=== PATIENT | female | born 1995 | race Caucasian/White ===

== ENCOUNTER 2018-10-12 06:02 | Emergency (ER) | payer MEDICAID ==
[2018-10-12] MEDS ORDERED: Sodium Chloride 0.9% 10 ML Syringe FLUSH PRN (06:28)
[2018-10-12] MEDS ORDERED: HYDROmorphone 0.5 MG/0.5 ML Syringe IVPUSH ONE ×2 (06:28→08:52)
[2018-10-12] MEDS ORDERED: Ketorolac 30 MG/ML SDV IVPUSH SCH (06:30)
[2018-10-12] MEDS ORDERED: Sodium Chloride 0.9% 1,000 ML IV SCH (06:30)
[2018-10-12] MEDS ORDERED: Ketorolac 30 MG/ML SDV ONE (06:33)
--- NOTE | 2018-10-12 06:58 | EDM.PDOC ---
ED HPI GENERAL MEDICAL PROBLEM - General Chief Complaint: Flank Pain Stated Complaint: BACK AND SIDE PAIN Time Seen by Provider: 10/12/18 06:21 Source of Information: Reports: Patient, RN Notes Reviewed - History of Present Illness INITIAL COMMENTS - FREE TEXT/NARRATIVE: 23 old female comes in with severe right-sided flank and back discomfort. Started about one hour ago. Said some mild achiness right back for the last several days but nothing severe. Now the pain is severe, sharp, shooting and will not go away. She's had no recent voiding symptomatology. No fever chills nausea or vomiting. She does have history of 1 prior kidney stone about 4 years ago. The flank and abdominal discomfort does not radiate to the left side but does radiate down toward the right groin. Right Flank Pain Score (Numeric/FACES): 10 - Related Data Allergies Allergy/AdvReac Type Severity Reaction Status Date / Time acetaminophen [From Vicodin] Allergy Hives Verified 10/12/18 06:13 amoxicillin Allergy Hives Verified 10/12/18 06:16 hydrocodone [From Vicodin] Allergy Hives Verified 10/12/18 06:13 oxycodone [From Percocet] Allergy Hives Verified 10/12/18 06:14 Penicillins Allergy Hives Verified 10/12/18 06:13 Home Meds: Home Meds traMADol [Ultram] 50 mg PO Q6H PRN #20 tab 10/12/18 [Rx] Past Medical History Gastrointestinal History: Reports: Cholelithiasis Genitourinary History: Reports: Renal Calculus 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: Musculoskeletal History: Reports: Fracture, Other (See Below) Other Musculoskeletal History: Fx elbow - Past Surgical History HEENT Surgical History: Reports: Tonsillectomy Social & Family History - Tobacco Use Smoking Status *Q: Former Smoker Years of Tobacco use: 4 Used Tobacco, but Quit: Yes Month/Year Tobacco Last Used: 2018 - Caffeine Use Caffeine Use: Reports: Coffee - Recreational Drug Use Recreational Drug Use: No ED ROS GENERAL - Review of Systems Review Of Systems: See Below Constitutional: Denies: Fever, Chills HEENT: Reports: No Symptoms Respiratory: Denies: Shortness of Breath Cardiovascular: Denies: Chest Pain GI/Abdominal: Reports: Abdominal Pain. Denies: Diarrhea, Nausea (Right flank), Vomiting : Reports: No Symptoms Musculoskeletal: Reports: Back Pain (Right-sided) Skin: Reports: No Symptoms ED EXAM, RENAL/ - Physical Exam Exam: See Below General Appearance: Alert, Moderate Distress Eye Exam: Bilateral Eye: PERRL Throat/Mouth: Normal Inspection Head: Atraumatic Neck: Supple Respiratory/Chest: No Respiratory Distress, Lungs Clear, Normal Breath Sounds Cardiovascular: Regular Rate, Rhythm GI/Abdominal: Soft, Non-Tender Back Exam: CVA Tenderness (R) (Mild) Neurological: Alert, Oriented, No Motor/Sensory Deficits Skin Exam: Warm, Dry, Normal Color Course - Vital Signs Last Recorded V/S: Last Vital Signs Temp 97.7 F 10/12/18 06:09 Pulse 97 10/12/18 06:09 Resp 18 10/12/18 06:09 BP 134/101 H 10/12/18 06:09 Pulse Ox 99 10/12/18 06:09 - Orders/Labs/Meds Orders: Active Orders 24 hr Category Date Time Status Peripheral IV Care [RC] . DIRECTED Care 10/12/18 06:30 Active Peripheral IV Insertion Adult [OM.PC] Stat Oth 10/12/18 06:27 Ordered Labs: Laboratory Tests 10/12/18 Range/Units 08:20 Urine Color Yellow (Yellow) Urine Appearance Slt cloudy H (Clear) Urine pH 5.5 (5.0-8.0) Ur Specific [place] > or = 1.030 (1.005-1.030) Urine Protein 2+ H (Negative) Urine Glucose (UA) Negative (Negative) Urine Ketones Negative (Negative) Urine Occult Blood 3+ H (Negative) Urine Nitrite Negative (Negative) Urine Bilirubin Negative (Negative) Urine Urobilinogen 0.2 (0.2-1.0) Ur Leukocyte Esterase Negative (Negative) Urine RBC 40-50 H (0-5) /hpf Urine WBC 0-5 (0-5) /hpf Ur Epithelial Cells 0-5 (0-5) /hpf Urine Bacteria Few (FEW) /hpf Urine Mucus Not seen (FEW) /hpf Urine Yeast (Budding) Moderate H (NOT SEEN) Meds: Medications Discontinued Medications Generic Name Dose Route Start Last Admin Trade Name Freq PRN Reason Stop Dose Admin Hydromorphone HCl 0.5 mg 10/12/18 06:28 10/12/18 06:40 Dilaudid IVPUSH 10/12/18 06:29 0.5 mg ONETIME ONE Administration Hydromorphone HCl 0.25 mg 10/12/18 08:52 10/12/18 09:03 Dilaudid IVPUSH 10/12/18 08:53 0.25 mg ONETIME ONE Administration Sodium Chloride 1,000 mls @ 999 mls/hr 10/12/18 06:30 10/12/18 06:37 Normal Saline IV 999 mls/hr ONETIME BETTY Administration Ketorolac Tromethamine 30 mg 10/12/18 06:30 10/12/18 06:38 Toradol IVPUSH 30 mg ONETIME BETTY Administration Ketorolac Tromethamine Confirm 10/12/18 06:33 10/12/18 06:38 Toradol Administered 10/12/18 06:34 Not Given Dose 30 mg .ROUTE .STK-MED ONE Ondansetron HCl 4 mg 10/12/18 09:02 10/12/18 09:17 Zofran Odt PO 10/12/18 09:03 4 mg ONETIME ONE Administration Sodium Chloride 10 ml 10/12/18 06:28 10/12/18 07:24 Saline Flush FLUSH 10 ml ASDIRECTED PRN Administration Keep Vein Open - Re-Assessments/Exams Free Text/Narrative Re-Assessment/Exam: 10/13/18 02:09 Patient's discomfort is very similar to what she had with prior kidney stone about 4 years ago. She's been treated with multiple doses of Dilaudid for pain, Zofran for nausea and did get relatively good relief with that. UA does show significant hematuria, no evidence for infection. I discussed pros and cons of abdominal CT with patient. Because of her very young age and radiation risk we are going to hold off on CT, give her a chance to pass the stone first. If she does not pass the stone within 2 or 3 days she will follow-up at the clinic or return to ED as needed and appropriate imaging can then be obtained. Departure - Departure Time of Disposition: 09:25 Disposition: Home, Self-Care 01 Condition: Fair Clinical Impression: Ureteric colic, Kidney stone - Discharge Information Prescriptions: traMADol [Ultram] 50 mg PO Q6H PRN #20 tab PRN Reason: Pain Instructions: Renal Colic, [id number], Kidney Stones, [id number] Referrals: PCP,None [Primary Care Provider] - Forms: ED Department Discharge Additional Instructions: strain all urine to watch for stone, tylenol 1000 mg 3 times daily, advil or ibuprofen 600 mg alternating with tylenol if needed for further pain relief. Tramadol 50 mg q 6 to 8 hr if needed for severe pain not relieved by tylenol or ibuprofen. See one of our medical providers at our [facility] Tuesday in follow up. Call [phone] this morning for that appointment. Return to ED as needed if symptoms worsening in any way. - My Orders Last 24 Hours: My Active Orders 10/12/18 06:27 Peripheral IV Insertion Adult [OM.PC] Stat 10/12/18 06:30 Peripheral IV Care [RC] . DIRECTED - Assessment/Plan Last 24 Hours: My Active Orders 10/12/18 06:27 Peripheral IV Insertion Adult [OM.PC] Stat 10/12/18 06:30 Peripheral IV Care [RC] . DIRECTED
[2018-10-12] MEDS ORDERED: Ondansetron 4 MG Tab.DIS PO ONE (09:02)
== END 2018-10-12 09:48 | disposition home or self-care (01) ==
LOC: JD.ED 06:02
DX: N20.0 Calculus of kidney (principal); N23 Unspecified renal colic; Z87.891 Personal history of nicotine dependence; Z88.0 Allergy status to penicillin; Z88.1 Allergy status to other antibiotic agents; Z88.5 Allergy status to narcotic agent; Z88.6 Allergy status to analgesic agent
CPT/HCPCS: 81001; 96361; 96374; 96375; 96376; 99284; A9270; J1170; J1885; J7040

== ENCOUNTER 2018-10-16 12:30 | Emergency (ER) | payer MEDICAID ==
--- NOTE | 2018-10-16 14:54 | CR ---
Abdomen: Supine and upright views of the abdomen were obtained. Comparison: No previous study. Bowel gas pattern is normal. No abnormal calcifications or soft tissue abnormality is seen. No free air is seen. Visualized lung bases are clear. Bony structures are unremarkable. Impression: 1. Nothing acute is seen on two-view abdominal x-ray. Diagnostic code #1
--- NOTE | 2018-10-16 14:56 | EDM.PDOC ---
ED HPI GENERAL MEDICAL PROBLEM - General Chief Complaint: Flank Pain Stated Complaint: KIDNEY STONE PAIN IS WORSE Time Seen by Provider: 10/16/18 12:45 - History of Present Illness INITIAL COMMENTS - FREE TEXT/NARRATIVE: 23-year-old female presents emergency room with worsening kidney stone pain. She was seen here on Tuesday diagnosed with a kidney stone based on urinalysis history physical. Her pain is getting worse and now the pain is bilateral still more so on the right. The patient has had a history of kidney stones in the past. She denies fevers or chills. No burning or frequency with urination. She was advised to use tramadol with ibuprofen but stopped using this a couple days ago because of stomach upset. Flank Pain Score (Numeric/FACES): 10 - Related Data Allergies Allergy/AdvReac Type Severity Reaction Status Date / Time acetaminophen [From Vicodin] Allergy Hives Verified 10/16/18 12:36 amoxicillin Allergy Hives Verified 10/16/18 12:36 hydrocodone [From Vicodin] Allergy Hives Verified 10/16/18 12:36 oxycodone [From Percocet] Allergy Hives Verified 10/16/18 12:36 Penicillins Allergy Hives Verified 10/16/18 12:36 Home Meds: Home Meds traMADol [Ultram] 50 mg PO Q6H PRN #20 tab 10/12/18 [Rx] HYDROmorphone [Dilaudid] 2 mg PO Q4H PRN #15 tab 10/16/18 [Rx] Past Medical History Gastrointestinal History: Reports: Cholelithiasis Genitourinary History: Reports: Renal Calculus 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: Musculoskeletal History: Reports: Fracture, Other (See Below) Other Musculoskeletal History: Fx elbow - Past Surgical History HEENT Surgical History: Reports: Tonsillectomy Social & Family History - Tobacco Use Smoking Status *Q: Never Smoker - Caffeine Use Caffeine Use: Reports: Coffee - Recreational Drug Use Recreational Drug Use: No ED ROS GENERAL - Review of Systems Review Of Systems: See Below Constitutional: Reports: No Symptoms Respiratory: Reports: No Symptoms Cardiovascular: Reports: No Symptoms Endocrine: Reports: No Symptoms GI/Abdominal: Reports: No Symptoms : Reports: Flank Pain. Denies: Discharge, Dysuria, Frequency, Hematuria, Incontinence, Urgency Neurological: Reports: No Symptoms ED EXAM, GI/ABD - Physical Exam Exam: See Below Exam Limited By: No Limitations General Appearance: Alert, No Apparent Distress Head: Atraumatic, Normocephalic Neck: Normal Inspection, Supple, Non-Tender, Full Range of Motion Respiratory/Chest: No Respiratory Distress, Lungs Clear, Normal Breath Sounds Cardiovascular: Regular Rate, Rhythm, No Edema, No Murmur GI/Abdominal Exam: Normal Bowel Sounds, Soft, Other (She has tenderness worse in the right side compared to the left but indeed has left-sided discomfort this is worsening with palpation no rigidity rebound or guarding noted) Neurological: Alert, Oriented, Normal Cognition Course - Vital Signs Last Recorded V/S: Last Vital Signs Temp 36.8 C 10/16/18 12:35 Pulse 98 10/16/18 12:35 Resp 16 10/16/18 12:35 BP 122/93 H 10/16/18 12:35 Pulse Ox 96 10/16/18 12:35 - Orders/Labs/Meds Labs: Laboratory Tests 10/16/18 10/16/18 10/16/18 Range/Units 13:25 13:25 13:38 WBC 7.29 (3.98-10.04) K/mm3 RBC 5.00 (3.98-5.22) M/mm3 Hgb 13.7 (11.2-15.7) gm/L Hct 42.1 (34.1-44.9) % MCV 84.2 (79.4-94.8) fl MCH 27.4 (25.6-32.2) pg MCHC 32.5 (32.2-35.5) g/dl RDW Std Deviation 42.1 (36.4-46.3) fL Plt Count 350 (182-369) K/mm3 MPV 9.7 (9.4-12.3) fl Neutrophils % (Manual) 60 (40-60) % Band Neutrophils % 0 (0-10) % Lymphocytes % (Manual) 30 (20-40) % Atypical Lymphs % 0 % Monocytes % (Manual) 8 (2-10) % Eosinophils % (Manual) 2 (0.7-5.8) % Basophils % (Manual) 0 L (0.1-1.2) Platelet Estimate Adequate RBC Morph Comment Normal Sodium 142 (136-145) mEq/L Potassium 3.8 (3.5-5.1) mEq/L Chloride 102 (98-107) mEq/L Carbon Dioxide 29 (21-32) mEq/L Anion Gap 14.8 (5-15) BUN 12 (7-18) mg/dL Creatinine 0.6 (0.55-1.02) mg/dL Est Cr Clr Drug Dosing 109.10 mL/min Estimated GFR (MDRD) > 60 (>60) mL/min BUN/Creatinine Ratio 20.0 H (14-18) Glucose 85 (74-106) mg/dL Calcium 10.1 (8.5-10.1) mg/dL Total Bilirubin 0.1 L (0.2-1.0) mg/dL AST 24 (15-37) U/L ALT 38 (14-59) U/L Alkaline Phosphatase 94 (46-116) U/L Total Protein 9.3 H (6.4-8.2) g/dl Albumin 4.6 (3.4-5.0) g/dl Globulin 4.7 gm/dL Albumin/Globulin Ratio 1.0 (1-2) Lipase 145 (73-393) U/L Urine Color Yellow (Yellow) Urine Appearance Clear (Clear) Urine pH 6.5 (5.0-8.0) Ur Specific [place] 1.025 (1.005-1.030) Urine Protein Negative (Negative) Urine Glucose (UA) Negative (Negative) Urine Ketones Negative (Negative) Urine Occult Blood Trace-intact H (Negative) Urine Nitrite Negative (Negative) Urine Bilirubin Negative (Negative) Urine Urobilinogen 0.2 (0.2-1.0) Ur Leukocyte Esterase Trace H (Negative) Urine RBC 0-5 (0-5) /hpf Urine WBC 0-5 (0-5) /hpf Ur Squamous Epith Cells 0-5 (0-5) /hpf Urine Bacteria Few (FEW) /hpf Urine Mucus Few (FEW) /hpf Urine HCG, Qual (NEGATIVE) 10/16/18 Range/Units 13:38 WBC (3.98-10.04) K/mm3 RBC (3.98-5.22) M/mm3 Hgb (11.2-15.7) gm/L Hct (34.1-44.9) % MCV (79.4-94.8) fl MCH (25.6-32.2) pg MCHC (32.2-35.5) g/dl RDW Std Deviation (36.4-46.3) fL Plt Count (182-369) K/mm3 MPV (9.4-12.3) fl Neutrophils % (Manual) (40-60) % Band Neutrophils % (0-10) % Lymphocytes % (Manual) (20-40) % Atypical Lymphs % % Monocytes % (Manual) (2-10) % Eosinophils % (Manual) (0.7-5.8) % Basophils % (Manual) (0.1-1.2) Platelet Estimate RBC Morph Comment Sodium (136-145) mEq/L Potassium (3.5-5.1) mEq/L Chloride (98-107) mEq/L Carbon Dioxide (21-32) mEq/L Anion Gap (5-15) BUN (7-18) mg/dL Creatinine (0.55-1.02) mg/dL Est Cr Clr Drug Dosing mL/min Estimated GFR (MDRD) (>60) mL/min BUN/Creatinine Ratio (14-18) Glucose (74-106) mg/dL Calcium (8.5-10.1) mg/dL Total Bilirubin (0.2-1.0) mg/dL AST (15-37) U/L ALT (14-59) U/L Alkaline Phosphatase (46-116) U/L Total Protein (6.4-8.2) g/dl Albumin (3.4-5.0) g/dl Globulin gm/dL Albumin/Globulin Ratio (1-2) Lipase (73-393) U/L Urine Color (Yellow) Urine Appearance (Clear) Urine pH (5.0-8.0) Ur Specific [place] (1.005-1.030) Urine Protein (Negative) Urine Glucose (UA) (Negative) Urine Ketones (Negative) Urine Occult Blood (Negative) Urine Nitrite (Negative) Urine Bilirubin (Negative) Urine Urobilinogen (0.2-1.0) Ur Leukocyte Esterase (Negative) Urine RBC (0-5) /hpf Urine WBC (0-5) /hpf Ur Squamous Epith Cells (0-5) /hpf Urine Bacteria (FEW) /hpf Urine Mucus (FEW) /hpf Urine HCG, Qual Negative (NEGATIVE) Meds: Medications Discontinued Medications Generic Name Dose Route Start Last Admin Trade Name Freq PRN Reason Stop Dose Admin Iopamidol 100 ml 10/16/18 15:26 10/16/18 15:28 Isovue-300 (61%) IVPUSH 10/16/18 15:27 100 ml ONETIME ONE Administration Sodium Chloride 10 ml 10/16/18 15:26 10/16/18 15:28 Saline Flush FLUSH 10/16/18 15:27 10 ml ONETIME ONE Administration - Re-Assessments/Exams Free Text/Narrative Re-Assessment/Exam: 10/16/18 17:03 We'll ahead and obtained the labs consider some confusion as well as causing her pain checked plain film of the abdomen she has some still there but not excessive amounts. Decided to go ahead and CT are with IV contrast, as the diagnosis is still in question and sure enough she has a 4.7mm distal right ureter stone no other abnormalities really identified. Pain management we'll try her on oral Dilaudid 2 mg 1/2-1 tablet every 4 hours as needed if the tramadol by itself is not helping. Departure - Departure Time of Disposition: 16:40 Disposition: Home, Self-Care 01 Clinical Impression: Kidney stone - Discharge Information Prescriptions: HYDROmorphone [Dilaudid] 2 mg PO Q4H PRN #15 tab PRN Reason: Pain Instructions: Kidney Stones Referrals: PCP,None [Primary Care Provider] - Forms: ED Department Discharge Additional Instructions: Return to the emergency room with any questions problems or worsening symptoms. Follow-up at the Hospital clinic at the end of this week for recheck call tomorrow to schedule appointment [phone]. Use the Dilaudid as needed for pain one half to one every 4 hours as needed if the tramadol is not working. The tramadol with ibuprofen can potentially be very upsetting to the stomach. Continue to strain the urine and try and capture the stone.
[2018-10-16] MEDS ORDERED: Sodium Chloride 0.9% 10 ML Syringe FLUSH ONE (15:26)
[2018-10-16] MEDS ORDERED: Iopamidol 612 MG/ML 100 ML Bottle IVPUSH ONE (15:26)
--- NOTE | 2018-10-16 16:05 | CT ---
CT abdomen and pelvis Technique: Multiple axial sections were obtained from above the dome of the diaphragm inferiorly through the pubic symphysis. Intravenous contrast was given. No oral contrast was given. Findings: Visualized portions of the lung bases show nothing acute. Liver contains mild fatty infiltration without focal abnormality. Spleen appears within normal limits. Small hiatal hernia is seen. Adrenal glands show no nodule. Pancreas is within normal limits. Gallbladder contains no calcified gallstones. Kidneys show symmetric contrast enhancement. Right ureter is slightly prominent in size with a calcification being seen within the distal right ureter measuring 4.7 mm felt compatible with a mildly obstructing ureteral stone. Please correlate that this matches the patient's symptoms. Small cyst noted within the right kidney within the mid to upper pole measuring 6 mm. Small nonobstructing calculus is noted within the lower right kidney measuring approximately 2.5 mm.. Aorta shows no aneurysm. No retroperitoneal adenopathy or mesenteric abnormalities are seen. Minimal free fluid is noted within the pelvis most likely physiologic. No pelvic mass or adenopathy is seen. Appendix is seen which is normal in size. No inflammatory change is seen. Bone window settings were reviewed which appear within normal limits for the patient's age. Impression: 1. Slightly prominent right ureter with a 4.7 mm calcification felt compatible with a distal right ureteral stone. Please confirm this matches the patient's clinical symptoms. 2. Other findings believed to be incidental as noted above. No other acute abnormality is seen. Diagnostic code #3
== END 2018-10-16 17:02 | disposition home or self-care (01) ==
LOC: JD.ED 12:30
DX: N20.2 Calculus of kidney with calculus of ureter (principal); Z88.1 Allergy status to other antibiotic agents; Z88.0 Allergy status to penicillin; Z88.6 Allergy status to analgesic agent; Z88.5 Allergy status to narcotic agent
CPT/HCPCS: 36415; 74019; 74177; 80053; 81001; 81025; 83690; 85007; 85027; 99284; Q9967; 99283

== ENCOUNTER 2018-11-05 01:52 | Emergency (ER) | payer MEDICAID ==
[2018-11-05] MEDS ORDERED: Ondansetron 4 MG/2 ML SDV IVPUSH ONE (02:22)
[2018-11-05] MEDS ORDERED: HYDROmorphone 0.5 MG/0.5 ML Syringe IVPUSH ONE ×2 (02:22→03:52)
[2018-11-05] MEDS ORDERED: Ketorolac 30 MG/ML SDV IVPUSH ONE (02:23)
[2018-11-05] MEDS ORDERED: Sodium Chloride 0.9% 1,000 ML IV SCH (02:30)
--- NOTE | 2018-11-05 02:46 | EDM.PDOC ---
ED HPI GENERAL MEDICAL PROBLEM - General Chief Complaint: Genitourinary Problem Stated Complaint: pain from kidney stones Time Seen by Provider: 11/05/18 02:11 Source of Information: Reports: Patient History Limitations: Reports: No Limitations - History of Present Illness INITIAL COMMENTS - FREE TEXT/NARRATIVE: This is a 23-year-old female. She is been having right flank pain for approximately 1 month secondary to a stone she states is 4.7 mm in size. She had a CT scan on 18 October that showed in the distal right ureter. She states she has not passed the stone yet but she has not been referred to a urologist or seen anyone else. Today the pain got worse with nausea and vomiting but no fever. She comes to the ER for evaluation. States she's also been having some dysuria though she has not noticed any particular blood in her urine. His dysuria is actually going on for several weeks related to the time she was having kidney stone pain. Right Flank Pain Score (Numeric/FACES): 10 - Related Data Allergies Allergy/AdvReac Type Severity Reaction Status Date / Time acetaminophen [From Vicodin] Allergy Hives Verified 10/16/18 12:36 amoxicillin Allergy Hives Verified 10/16/18 12:36 hydrocodone [From Vicodin] Allergy Hives Verified 10/16/18 12:36 oxycodone [From Percocet] Allergy Hives Verified 10/16/18 12:36 Penicillins Allergy Hives Verified 10/16/18 12:36 Home Meds: Home Meds traMADol [Ultram] 50 mg PO Q6H PRN #20 tab 10/12/18 [Rx] Acetaminophen/oxyCODONE [Percocet 325-5 MG] 1 each PO Q6H PRN #15 tab 11/05/18 [ Rx] Ciprofloxacin HCl [Cipro] 500 mg PO BID #14 tablet 11/05/18 [Rx] Ondansetron [Zofran] 4 mg PO Q6H PRN #15 tab 11/05/18 [Rx] Past Medical History Gastrointestinal History: Reports: Cholelithiasis Genitourinary History: Reports: Renal Calculus 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: Musculoskeletal History: Reports: Fracture, Other (See Below) Other Musculoskeletal History: Fx elbow - Past Surgical History HEENT Surgical History: Reports: Tonsillectomy Social & Family History - Family History Family Medical History: Noncontributory - Tobacco Use Smoking Status *Q: Never Smoker - Caffeine Use Caffeine Use: Reports: Coffee - Recreational Drug Use Recreational Drug Use: No ED ROS GENERAL - Review of Systems Review Of Systems: See Below Constitutional: Denies: Fever, Chills HEENT: Reports: No Symptoms Respiratory: Reports: No Symptoms Cardiovascular: Reports: No Symptoms Endocrine: Reports: No Symptoms GI/Abdominal: Reports: Abdominal Pain, Nausea, Vomiting. Denies: Diarrhea : Reports: Dysuria, Flank Pain Musculoskeletal: Reports: No Symptoms Skin: Reports: No Symptoms Neurological: Reports: No Symptoms Psychiatric: Reports: No Symptoms Hematologic/Lymphatic: Reports: No Symptoms ED EXAM, RENAL/ - Physical Exam Exam: See Below Exam Limited By: No Limitations General Appearance: Alert, WD/WN, Mild Distress Eye Exam: Bilateral Eye: Normal Inspection Ears: Normal External Exam Nose: Normal Inspection Throat/Mouth: Normal Inspection, Normal Lips, Normal Voice, No Airway Compromise Head: Normocephalic Neck: Supple Respiratory/Chest: No Respiratory Distress, Lungs Clear, Normal Breath Sounds GI/Abdominal: Soft Back Exam: Normal Inspection, Full Range of Motion, CVA Tenderness (R) Extremities: Normal Inspection, Normal Range of Motion Neurological: Alert, Oriented Psychiatric: Anxious Skin Exam: Warm, Dry Course - Vital Signs Last Recorded V/S: Last Vital Signs Temp 97.5 F 11/05/18 01:59 Pulse 97 11/05/18 01:59 Resp 16 11/05/18 01:59 BP 137/94 H 11/05/18 01:59 Pulse Ox 96 11/05/18 01:59 - Orders/Labs/Meds Orders: Active Orders 24 hr Category Date Time Status Abdomen Pelvis wo Cont [CT] Stat Exams 11/05/18 02:47 Taken Sodium Chloride 0.9% [Normal Saline] 1,000 ml Med 11/05/18 02:30 Active IV ASDIRECTED Medication Orders Sodium Chloride (Normal Saline) 1,000 mls @ 1,000 mls/hr IV ASDIRECTED BETTY Last Admin: 11/05/18 02:35 Dose: 1,000 mls/hr Labs: Laboratory Tests 11/05/18 11/05/18 11/05/18 Range/Units 02:06 02:06 02:18 WBC 14.89 H (3.98-10.04) K/mm3 RBC 4.92 (3.98-5.22) M/mm3 Hgb 13.4 (11.2-15.7) gm/L Hct 41.3 (34.1-44.9) % MCV 83.9 (79.4-94.8) fl MCH 27.2 (25.6-32.2) pg MCHC 32.4 (32.2-35.5) g/dl RDW Std Deviation 41.8 (36.4-46.3) fL Plt Count 301 (182-369) K/mm3 MPV 9.9 (9.4-12.3) fl Neut % (Auto) 75.3 H (34.0-71.1) % Lymph % (Auto) 18.5 L (19.3-51.7) % Potter % (Auto) 5.4 (4.7-12.5) % Eos % (Auto) 0.4 L (0.7-5.8) Baso % (Auto) 0.1 (0.1-1.2) % Neut # (Auto) 11.22 H (1.56-6.13) K/mm3 Lymph # (Auto) 2.75 (1.18-3.74) K/mm3 Potter # (Auto) 0.80 H (0.24-0.36) K/mm3 Eos # (Auto) 0.06 (0.04-0.36) K/mm3 Baso # (Auto) 0.02 (0.01-0.08) K/mm3 Manual Slide Review Abnormal smear Sodium 140 (136-145) mEq/L Potassium 3.9 (3.5-5.1) mEq/L Chloride 102 (98-107) mEq/L Carbon Dioxide 27 (21-32) mEq/L Anion Gap 14.9 (5-15) BUN 19 H (7-18) mg/dL Creatinine 0.9 (0.55-1.02) mg/dL Est Cr Clr Drug Dosing 72.73 mL/min Estimated GFR (MDRD) > 60 (>60) mL/min BUN/Creatinine Ratio 21.1 H (14-18) Glucose 100 (74-106) mg/dL Calcium 9.7 (8.5-10.1) mg/dL Total Bilirubin 0.2 (0.2-1.0) mg/dL AST 17 (15-37) U/L ALT 29 (14-59) U/L Alkaline Phosphatase 82 (46-116) U/L Total Protein 8.7 H (6.4-8.2) g/dl Albumin 4.4 (3.4-5.0) g/dl Globulin 4.3 gm/dL Albumin/Globulin Ratio 1.0 (1-2) Urine Color Yellow (Yellow) Urine Appearance Slt cloudy H (Clear) Urine pH 5.5 (5.0-8.0) Ur Specific Douglas > or = 1.030 (1.005-1.030) Urine Protein 3+ H (Negative) Urine Glucose (UA) Negative (Negative) Urine Ketones Negative (Negative) Urine Occult Blood 3+ H (Negative) Urine Nitrite Negative (Negative) Urine Bilirubin Negative (Negative) Urine Urobilinogen 0.2 (0.2-1.0) Ur Leukocyte Esterase Negative (Negative) Urine RBC 40-50 H (0-5) /hpf Urine WBC 0-5 (0-5) /hpf Ur Squamous Epith Cells 5-10 H (0-5) /hpf Amorphous Sediment Few H (NOT SEEN) /hpf Urine Bacteria Moderate H (FEW) /hpf Urine Mucus Moderate H (FEW) /hpf Urinalysis Comment Meds: Medications Generic Name Dose Route Start Last Admin Trade Name Freq PRN Reason Stop Dose Admin Sodium Chloride 1,000 mls @ 1,000 mls/hr 11/05/18 02:30 11/05/18 02:35 Normal Saline IV 1,000 mls/hr ASDIRECTED BETTY Administration Discontinued Medications Generic Name Dose Route Start Last Admin Trade Name Freq PRN Reason Stop Dose Admin Hydromorphone HCl 0.5 mg 11/05/18 02:22 11/05/18 02:39 Dilaudid IVPUSH 11/05/18 02:23 0.5 mg ONETIME ONE Administration Hydromorphone HCl 0.5 mg 11/05/18 03:52 11/05/18 03:54 Dilaudid IVPUSH 11/05/18 03:53 0.5 mg ONETIME ONE Administration Levofloxacin/Dextrose 750 mg/ 150 mls @ 100 mls/hr 11/05/18 04:01 11/05/18 04 :10 Premix IV 11/05/18 05:30 100 mls/hr ONETIME ONE Administration Ketorolac Tromethamine 30 mg 11/05/18 02:23 11/05/18 02:37 Toradol IVPUSH 11/05/18 02:24 30 mg ONETIME ONE Administration Ondansetron HCl 4 mg 11/05/18 02:22 11/05/18 02:36 Zofran IVPUSH 11/05/18 02:23 4 mg ONETIME ONE Administration - Radiology Interpretation Free Text/Narrative:: CT scan shows a 5 mm stone at the right UVJ moderate hydronephrosis and some mild perinephric stranding. - Re-Assessments/Exams Free Text/Narrative Re-Assessment/Exam: 11/05/18 04:05 I spoke to the patient regarding the CT scan results and the fact she might be developing early pyelonephritis with a mildly elevated white count. I'll give her some IV antibiotics and put her on antibiotics and refer her down to JENNIFER Garvin. She is to call his office on Tuesday and get into see him. Free Text/Narrative Re-Assessment/Exam: 11/05/18 06:06 I was able to write a prescription for Percocet and either I missed the flag or it went by quickly. Anyhow the prescription was not given to the patient because she is allergic to oxycodone and she has tramadol at home and she will just take those. Departure - Departure Time of Disposition: 04:06 Disposition: Home, Self-Care 01 Condition: Fair Clinical Impression: Right nephrolithiasis, Renal colic on right side, UTI, Urinary tract infectious disease - Discharge Information *PRESCRIPTION DRUG MONITORING PROGRAM REVIEWED*: No *COPY OF PRESCRIPTION DRUG MONITORING REPORT IN PATIENT COLETTE: No Prescriptions: Acetaminophen/oxyCODONE [Percocet 325-5 MG] 1 each PO Q6H PRN #15 tab PRN Reason: Pain Ciprofloxacin HCl [Cipro] 500 mg PO BID #14 tablet Ondansetron [Zofran] 4 mg PO Q6H PRN #15 tab PRN Reason: Nausea Instructions: Urinary Tract Infection, Adult, [id number] Referrals: Nicanor Garvin MD [Ordering Only Provider] - Forms: ED Department Discharge Additional Instructions: Take your antibiotics faithfully until finished. Drink lots of fluids especially water and juices and avoid sodas and caffeine, call Dr. Nicanor Garvin at [phone] or [phone] on Tuesday morning and let him know that your were in the ER at [facility] in [place] and that the ER doctor gave you his number to follow-up since you have a kidney stone that has been in the ureter for over a month and now you are developing an infection and you need the stone removed, he should be willing to see you and take care of the stone and get this fixed, return to the ER if needed - My Orders Last 24 Hours: My Active Orders 11/05/18 02:30 Sodium Chloride 0.9% [Normal Saline] 1,000 ml IV ASDIRECTED 11/05/18 02:47 Abdomen Pelvis wo Cont [CT] Stat - Assessment/Plan Last 24 Hours: My Active Orders 11/05/18 02:30 Sodium Chloride 0.9% [Normal Saline] 1,000 ml IV ASDIRECTED 11/05/18 02:47 Abdomen Pelvis wo Cont [CT] Stat
[2018-11-05] MEDS ORDERED: Levofloxacin/Dextrose 5%-Water 750 MG in Premix Bag 1 BAG IV ONE (04:01)
--- NOTE | 2018-11-07 10:28 | CT ---
CT abdomen and pelvis Technique: Multiple axial sections were obtained from above the dome of the diaphragm inferiorly through the pubic symphysis. Intravenous and oral contrast not utilized. Study performed as a ureteral stone protocol. Comparison: Previous abdominal and pelvic CT study of 10/16/18. Findings: Prominently dilated right ureter is seen down to the UVJ. This finding is caused by 5.5 mm obstructing stone within the distal right ureter near the UVJ. No other ureteral calcifications are seen. Single nonobstructing stone is noted within the lower right kidney. Two small nonobstructing calculi are seen within the mid left kidney. Visualized lung bases show nothing acute. Liver shows fatty infiltration. No focal abnormality is appreciated within the liver. Spleen appears within normal limits. Adrenal glands show no nodule. Pancreas shows no discrete abnormality. Gallbladder contains no calcified gallstones. Aorta shows no aneurysm. No retroperitoneal adenopathy is seen. Appendix is seen which is normal in size. No pelvic mass or adenopathy is seen. Small amount of fluid noted within the pelvis which is most likely physiologic. Bone window settings were reviewed which appear within normal limits for the patient's age. Impression: 1. Dilated right ureter caused by an obstructing 5.5 mm stone within the distal right ureter near the UVJ. 2. Several nonobstructing calculi within both kidneys as noted above. 3. Fatty infiltration within the liver. Diagnostic code #3 I agree with preliminary report from [facility], finalized on 11/05 size 19, 4:34 AM Central Time
== END 2018-11-05 06:00 | disposition home or self-care (01) ==
LOC: JD.ED 01:52
DX: N20.0 Calculus of kidney (principal); N39.0 Urinary tract infection, site not specified; Z88.8 Allergy status to other drugs, medicaments and biological substances; Z88.0 Allergy status to penicillin; Z88.5 Allergy status to narcotic agent; Z88.1 Allergy status to other antibiotic agents; Z98.890 Other specified postprocedural states
CPT/HCPCS: 36415; 74176; 80053; 81001; 85025; 96361; 96365; 96366; 96375; 96376; 99284; J1170; J1885; J1956; J2405; J7040

== ENCOUNTER 2019-01-24 12:10 | Emergency (ER) | payer SELFPAY ==
[2019-01-24] MEDS ORDERED: Albuterol 0.083% 2.5 MG/3 ML Neb Soln NEB ONE (12:55)
[2019-01-24] MEDS ORDERED: Ketorolac 60 MG/2 ML SDV IM ONE (12:56)
--- NOTE | 2019-01-24 13:13 | EDM.PDOC ---
ED HPI GENERAL MEDICAL PROBLEM - General Chief Complaint: General Stated Complaint: FEVER X 1 WEEK Time Seen by Provider: 01/24/19 12:23 Source of Information: Reports: Patient, RN Notes Reviewed History Limitations: Reports: No Limitations - History of Present Illness INITIAL COMMENTS - FREE TEXT/NARRATIVE: Patient is a 23-year-old female who presents to the ED for evaluation of a fever and cough. The patient notes that the symptoms have been present for around 1 week now. She notes her fever at home to be 100 F to 101.9 F. She notes that she has been taking DayQuil and NyQuil for symptom relief, this seems to help keep the fever down, however if she does not take it every 4 hours , the fever seems to come right back. 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 Patient denies any chance of today, she states she is currently on her menses. Patient states she has a headache, nonproductive cough, states her that her whole body hurts. She denies any sore throat, nausea/vomiting/diarrhea, or nasal congestion. 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 Denies: Shortness of Breath, Sputum Cardiovascular: Reports: Chest Pain GI/Abdominal: Denies: Abdominal Pain, Diarrhea, Nausea, Vomiting Musculoskeletal: Reports: Other (generalized myalgias) Neurological: Reports: Headache ED EXAM, GENERAL - Physical Exam Exam: See Below Exam Limited By: No Limitations General Appearance: Alert, WD/WN, No Apparent Distress (pt has nonproductive hacking cough.) Eye Exam: Bilateral Eye: EOMI, Normal Inspection, PERRL Ears: Normal External Exam, Normal Canal, Hearing Grossly Normal, Normal TMs Throat/Mouth: Normal Inspection, Normal Lips, Normal Teeth, Normal Gums, Normal Oropharynx, Normal Voice, No Airway Compromise Head: Atraumatic, Normocephalic Neck: Normal Inspection Respiratory/Chest: No Respiratory Distress, Lungs Clear, Normal Breath Sounds, No Accessory Muscle Use, Chest Non-Tender Cardiovascular: Normal Peripheral Pulses, Regular Rate, Rhythm, No Murmur Peripheral Pulses: 3+: Radial (L), Radial (R) Extremities: Normal Inspection, Normal Capillary Refill Neurological: Alert, Oriented, Normal Cognition, No Motor/Sensory Deficits Psychiatric: Normal Affect, Normal Mood Skin Exam: Warm, Dry, Intact, Normal Color, No Rash Course - Vital Signs Last Recorded V/S: Last Vital Signs Temp 98.5 F 01/24/19 12:21 Pulse 111 H 01/24/19 12:21 Resp 24 H 01/24/19 12:21 BP 144/93 H 01/24/19 12:21 Pulse Ox 95 01/24/19 12:55 - Orders/Labs/Meds Orders: Active Orders 24 hr Category Date Time Status RT Aerosol Therapy [RC] ASDIRECTED Care 01/24/19 12:55 Active Chest 2V [CR] Stat Exams 01/24/19 12:54 Taken Labs: Laboratory Tests 01/24/19 01/24/19 Range/Units 13:44 13:44 WBC 6.77 (3.98-10.04) K/mm3 RBC 4.66 (3.98-5.22) M/mm3 Hgb 12.4 (11.2-15.7) gm/dl Hct 37.8 (34.1-44.9) % MCV 81.1 (79.4-94.8) fl MCH 26.6 (25.6-32.2) pg MCHC 32.8 (32.2-35.5) g/dl RDW Std Deviation 40.9 (36.4-46.3) fL Plt Count 284 (182-369) K/mm3 MPV 9.3 L (9.4-12.3) fl Neutrophils % (Manual) 75 H (40-60) % Band Neutrophils % 0 (0-10) % Lymphocytes % (Manual) 21 (20-40) % Atypical Lymphs % 0 % Monocytes % (Manual) 4 (2-10) % Eosinophils % (Manual) 0 L (0.7-5.8) % Basophils % (Manual) 0 L (0.1-1.2) Platelet Estimate Adequate RBC Morph Comment Normal Sodium 137 (136-145) mEq/L Potassium 3.4 L (3.5-5.1) mEq/L Chloride 99 (98-107) mEq/L Carbon Dioxide 28 (21-32) mEq/L Anion Gap 13.4 (5-15) BUN 10 (7-18) mg/dL Creatinine 0.6 (0.55-1.02) mg/dL Est Cr Clr Drug Dosing 109.10 mL/min Estimated GFR (MDRD) > 60 (>60) mL/min BUN/Creatinine Ratio 16.7 (14-18) Glucose 92 (74-106) mg/dL Calcium 9.5 (8.5-10.1) mg/dL Total Bilirubin 0.3 (0.2-1.0) mg/dL AST 18 (15-37) U/L ALT 31 (14-59) U/L Alkaline Phosphatase 74 (46-116) U/L Total Protein 8.7 H (6.4-8.2) g/dl Albumin 3.9 (3.4-5.0) g/dl Globulin 4.8 gm/dL Albumin/Globulin Ratio 0.8 L (1-2) Meds: Medications Discontinued Medications Generic Name Dose Route Start Last Admin Trade Name Freq PRN Reason Stop Dose Admin Albuterol 2.5 mg 01/24/19 12:55 01/24/19 13:00 Proventil Neb Soln NEB 01/24/19 12:56 2.5 mg ONETIME ONE Administration Ketorolac Tromethamine 60 mg 01/24/19 12:56 01/24/19 13:32 Toradol IM 01/24/19 12:57 60 mg ONETIME ONE Administration - Re-Assessments/Exams Free Text/Narrative Re-Assessment/Exam: 01/24/19 13:53 Patient presents to the ED for the evaluation of a fever and cough. Influenza swab was obtained at time of triage, CBC, CMP, chest x-ray, and albuterol nebulizer were ordered for further evaluation and treatment. The influenza swab has been resulted as positive for influenza B at this time. Will await other labs, but likely discharge the patient home with general recommendations. 01/24/19 14:13 Chest x-ray is done, and does appear to be within normal limits, patient has very dense breast tissue, there was concern for myself and Dr. Kemp for right lower lobe infiltrate, however the white blood cell count does not support this, so I would assume this is her breast tissue causing overlying shadow. Official radiology read is pending at this time however. Patient was reassessed at bedside, and states that she did not receive much benefit from the albuterol neb. I did discuss labs with her, and I will provide the patient with some cough medicine, and other general recommendations and discharge her home. Of note, the patient's O2 sats did improve and have been around 95-96% on RA. Departure - Departure Time of Disposition: 14:31 Disposition: Home, Self-Care 01 Condition: Fair Clinical Impression: Influenza B - Discharge Information *PRESCRIPTION DRUG MONITORING PROGRAM REVIEWED*: No *COPY OF PRESCRIPTION DRUG MONITORING REPORT IN PATIENT COLETTE: No Prescriptions: Promethazine HCl/Codeine [Prometh-Codein 6.25-10 mg/5 ml] 5 ml PO Q6H PRN #120 ml PRN Reason: Cough Instructions: Influenza, Adult, [id number] Referrals: PCP,None [Primary Care Provider] - Forms: ED Department Discharge, ED Return to Work/School Form Additional Instructions: You have been evaluated in the ED for cold like symptoms and fever. You did test positive for influenza B. Please try to limit your exposure to others until you are 24 hours fever free. You may take 500 mg Tylenol, or 600 mg ibuprofen every 6 hours as needed for further fever/general ache relief. Do not exceed 4000 mg Tylenol, or 3200 mg ibuprofen in a 24-hour time span. Please note that most [id number] cold medications do have a mixture of Tylenol with them, please be aware of how much you are taking on a daily basis. You were given a prescription for some strong cough medicine, please take as directed for cough. Please encourage fluid intake as well as a bland diet until you can tolerate normal foods. Please return to the ED if your symptoms should change or worsen. - My Orders Last 24 Hours: My Active Orders 01/24/19 12:54 Chest 2V [CR] Stat 01/24/19 12:55 RT Aerosol Therapy [RC] ASDIRECTED - Assessment/Plan Last 24 Hours: My Active Orders 01/24/19 12:54 Chest 2V [CR] Stat 01/24/19 12:55 RT Aerosol Therapy [RC] ASDIRECTED
--- NOTE | 2019-01-29 06:37 | CR ---
Chest: Two views of the chest were obtained. Comparison: No prior chest imaging. Heart size and mediastinum are normal. Increased density is noted within the right middle lobe. Left lung is clear. Bony structures are unremarkable. Impression: 1. Probable pneumonia within the right middle lobe. Diagnostic code #3 This report was dictated in [place] Standard Time
== END 2019-01-24 15:09 | disposition home or self-care (01) ==
LOC: JD.ED 12:10
DX: J10.1 Influenza due to other identified influenza virus with other respiratory manifestations (principal); Z88.0 Allergy status to penicillin; Z88.5 Allergy status to narcotic agent
CPT/HCPCS: 36415; 71046; 80053; 85007; 85027; 87804; 94640; 96372; 99284; J1885; 99283